=== PATIENT | female | born 1945 | race Caucasian/White ===

== ENCOUNTER 2016-06-25 18:25 | Emergency (ER) | payer BC ==
[2016-06-25 18:41] VITALS: BP 133/77; PULSE 77; TEMP 97.8; BMI 44.8
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
== END 2016-06-25 20:09 | disposition home or self-care (01) ==
LOC: JERFT 18:25
DX: M25.562 Pain in left knee (principal); I10 Essential (primary) hypertension; E03.9 Hypothyroidism, unspecified; J44.9 Chronic obstructive pulmonary disease, unspecified; M54.5 Low back pain; G89.29 Other chronic pain; Z86.73 Personal history of transient ischemic attack (TIA), and cerebral infarction without residual deficits
CPT/HCPCS: 73562-TC-LT; 99281-25

== ENCOUNTER 2021-01-29 19:02 | Emergency (ER) | payer BC ==
[2021-01-29 19:10] VITALS: BP 125/41; PULSE 81; TEMP 98.4; BMI 43.0
[2021-01-29] MEDS ORDERED: DIPHTH,PERTUSS(ACELL),TET 0.5 ML DISP.SYRIN IM ONE ×2 (20:42→20:49)
== END 2021-01-29 20:56 | disposition home or self-care (01) ==
LOC: JERFT 19:02
PROC: 3E0234Z Introduction of Serum, Toxoid and Vaccine into Muscle, Percutaneous Approach (ICD-10-PCS; principal; 2021-01-29)
DX: S61.211A Laceration without foreign body of left index finger without damage to nail, initial encounter (principal); W25.XXXA Contact with sharp glass, initial encounter
CPT/HCPCS: 90471; 90715; 99282-25

== ENCOUNTER 2024-11-09 06:26 | Day surgery (SDC) | payer BC ==
[2024-11-09] MEDS ORDERED: ACETAMINOPHEN 500 MG TABLET (FP) PO PRN (09:14)
[2024-11-09 12:40] VITALS: RESP 18
[2024-11-09] MEDS ORDERED: LIDOCAINE HCL/PF 1% SDV 5ML VIAL ONE ×2 (12:53→13:36)
[2024-11-09 16:13] VITALS: BP 108/58; PULSE 67; TEMP 98.2
== END 2024-11-09 14:37 | disposition home or self-care (01) ==
LOC: JASU-SURG 06:26
PROVIDERS: ATTEND Pain Medicine Pain Medicine
PROC: 3E0T3BZ Introduction of Anesthetic Agent into Peripheral Nerves and Plexi, Percutaneous Approach (ICD-10-PCS; principal; 2024-11-09 14:14)
DX: M47.816 Spondylosis without myelopathy or radiculopathy, lumbar region (principal)
CPT/HCPCS: 76000-TC-FY